=== PATIENT | female | born 1970 | race African-American/Black ===

== ENCOUNTER 2016-10-28 04:26 | Emergency (ER) | payer OTHER ==
[~2016-10-28] VITALS: Ht 162.6 cm; Wt 89.0 kg
[~2016-10-28 04:26] MED LIST: CYAN1000P IM; DULO60 PO; ELUX1TAB PO; EMPA1TAB3; ERGO50000 PO; GABA800T PO; HYDR-3129 PO; LANTUS2P SC; LISI-363 PO; METH750T2 PO; METO10TA PO; NOVOLOGP2 SQ; PROM25SU8 PO; PROT40TA PO; TIZA4 PO; TRAZ100 PO
[2016-10-28 04:29] VITALS: BP 136/73; PULSE 97; RESP 14; TEMP 98.9; O2SAT 98
--- NOTE | 2016-10-28 04:51 | PD ---
HPI Chief Complaint: General Weakness Time Seen by Provider: 04:38 Travel History International Travel<30 days: No Contact w/Intl Traveler<30days: No Traveled to known affect area: No History of Present Illness HPI 46 year-old woman presents to the emergency department complaining of syncopal episode. She woke up around 1 AM. She wasn't really sleep yet. She went to go turn her air conditioner off. States she felt it coming on and fell also weak all over. She then passed out. She's passed out a couple times in the past. States she may have hit her head on the wall on the way down. Afterwards she had severe right knee pain and weakness rate probably down to her feet, as well as left knee pain. She otherwise had been feeling generally well and healthy. No chest pain or trouble breathing. No other complaints. History Past Medical History Narrative Medical CAD hypertension dyslipidemia gastroparesis peripheral neuropathy CVA fibromyalgia sleep apnea Gastric bypass LMP: TUBAL : 2 Para: 2 Dilation and Curettage (D&C): Yes Social History Alcohol Use: No Tobacco Use: No Allergies-Medications (Allergen,Severity, Reaction): Coded Allergies: Darvocet-N 100 (Verified Adverse Reaction, Severe, Tachycardia, 10/28/16) Ciprofloxacin (Verified Adverse Reaction, Intermediate, 10/28/16) Reported Meds & Prescriptions Reported Meds & Active Scripts Active Reported Trazodone (Trazodone HCl) 100 Mg Tab 100 Mg PO HS Tizanidine (Tizanidine HCl) 4 Mg Cap 4 Mg PO Q8HRS Protonix (Pantoprazole Sodium) 40 Mg Tab 40 Mg PO DAILY Reglan (Metoclopramide HCl) 10 Mg Tab 10 Mg PO Q6 HR Lisinopril 20 Mg Tab 20 Mg PO DAILY Lantus Inj (Insulin Glargine) 1,000 Unit/10 Ml Vial 25 Units SQ HS Hydrocodone-Acetaminophen 10-325 mg Tab 1 Tab PO Q6H PRN Gabapentin 800 Mg Tab 800 Mg PO TID Vitamin D (Ergocalciferol) 50,000 Unit Cap 50,000 Units PO WEEKLY takes 2 tabs per week Jardiance (Empagliflozin) 25 Mg Tab 25 Mg PO DAILY Viberzi (Eluxadoline) 75 Mg Tab 75 Mg PO DAILY Duloxetine DR (Duloxetine HCl) 60 Mg Capdr 60 Mg PO DAILY Review of Systems Except as stated in HPI: all other systems reviewed are Neg Physical Exam Narrative GENERAL: 46 year-old woman, no acute distress. SKIN: Focused skin assessment warm/dry. HEAD: Atraumatic. Normocephalic. EYES: Pupils equal and round. No scleral icterus. No injection or drainage. ENT: No nasal bleeding or discharge. Mucous membranes pink and moist. NECK: Trachea midline. No JVD. CARDIOVASCULAR: Regular rate and rhythm. No murmur appreciated. RESPIRATORY: No accessory muscle use. Clear to auscultation. Breath sounds equal bilaterally. GASTROINTESTINAL: Abdomen soft, non-tender, nondistended. Hepatic and splenic margins not palpable. MUSCULOSKELETAL: No obvious deformities. Right knee is a trace effusion with a little warm. She refuses to range it much at all. There is no significant ecchymosis or swelling. She has very diffuse tenderness of the knee and lower leg on the right. On the left she will range the knee some. She'll complaints of tenderness throughout the lower leg. NEUROLOGICAL: Awake and alert. No obvious cranial nerve deficits. Motor grossly within normal limits. Normal speech. PSYCHIATRIC: Appropriate mood and affect; insight and judgment normal. Data Data Last Documented VS Vital Signs Date Time Temp Pulse Resp B/P Pulse Ox O2 Delivery O2 Flow Rate FiO2 10/28/16 04:43 99 Room Air 10/28/16 04:29 98.9 97 14 136/73 Orders Complete Blood Count With Diff (10/28/16 04:45) Comprehensive Metabolic Panel (10/28/16 04:45) Beta Hcg (Quant/Titer) (10/28/16 04:45) Electrocardiogram (10/28/16 ) Iv Access Insert/Monitor (10/28/16 04:45) Knee, Complete (4vws) (10/28/16 ) Tibia/Fibula (Ap/Lat) (10/28/16 ) Knee, Complete (4vws) (10/28/16 ) Tibia/Fibula (Ap/Lat) (10/28/16 ) Labs Laboratory Tests Test 10/28/16 04:40 White Blood Count 7.5 TH/MM3 Red Blood Count 4.64 MIL/MM3 Hemoglobin 13.2 GM/DL Hematocrit 40.4 % Mean Corpuscular Volume 86.9 FL Mean Corpuscular Hemoglobin 28.5 PG Mean Corpuscular Hemoglobin 32.8 % Concent Red Cell Distribution Width 14.1 % Platelet Count 172 TH/MM3 Mean Platelet Volume 9.7 FL Neutrophils (%) (Auto) 69.3 % Lymphocytes (%) (Auto) 22.4 % Monocytes (%) (Auto) 5.9 % Eosinophils (%) (Auto) 2.0 % Basophils (%) (Auto) 0.4 % Neutrophils # (Auto) 5.2 TH/MM3 Lymphocytes # (Auto) 1.7 TH/MM3 Monocytes # (Auto) 0.4 TH/MM3 Eosinophils # (Auto) 0.1 TH/MM3 Basophils # (Auto) 0.0 TH/MM3 CBC Comment DIFF FINAL Differential Comment Sodium Level 137 MEQ/L Potassium Level 4.2 MEQ/L Chloride Level 104 MEQ/L Carbon Dioxide Level 25.2 MEQ/L Anion Gap 8 MEQ/L Blood Urea Nitrogen 13 MG/DL Creatinine 0.80 MG/DL Estimat Glomerular Filtration 94 ML/MIN Rate Random Glucose 143 MG/DL Calcium Level 8.7 MG/DL Total Bilirubin 0.3 MG/DL Aspartate Amino Transf 43 U/L (AST/SGOT) Alanine Aminotransferase 54 U/L (ALT/SGPT) Alkaline Phosphatase 105 U/L Total Protein 7.9 GM/DL Albumin 3.6 GM/DL Human Chorionic Gonadotropin, LESS THAN 1 Quant MIU/ML [facility] Medical Decision Making Medical Screen Exam Complete: Yes Emergency Medical Condition: Yes Interpretation(s) My review of EKG: Sinus rhythm at a rate of 92, normal axis, normal intervals, no definite evidence of acute ischemia. Small voltage. Compared to previous EKG from February 21, 2016, anterior precordial Q waves are new, no other definite change. LABS: CBC is unremarkable. CMP is unremarkable, mildly elevated AST and ALT HCG is negative Right knee x-ray: Small joint effusion. Left knee x-ray: Negative Bilateral tib-fib x-rays: Negative Differential Diagnosis Vasovagal syncope, adverse effect of medications, arrhythmia, PE, knee injury, head injury, other Narrative Course Medical decision making INITIAL : 46 year-old woman presents to the emergency department after syncopal episode. History of several syncopal episodes in the past. No clear precipitant. No other red flag symptoms. We'll check labs, EKG, and x-rays of her knee and lower legs. Diagnosis Primary Impression: Syncope and collapse Additional Impression: Knee pain, acute Additional Instructions: Drink plenty of fluids to stay well-hydrated You can weight-bear on your her right knee as tolerated. Follow-up with your primary doctor in 7 days for repeat evaluation. Disposition: 01 DISCHARGE HOME Condition: Stable Armand Braga MD Oct 28, 2016 04:50
[2016-10-28] MEDS ORDERED: LISI-515 PO (04:59)
[2016-10-28] MEDS ORDERED: NOVOLOGP2 SQ (04:59)
[2016-10-28] MEDS ORDERED: TIZA4CAP3 PO (04:59)
[2016-10-28] MEDS ORDERED: REGL10TA5 PO (04:59)
[2016-10-28] MEDS ORDERED: DULO1CAP3 PO (04:59)
[2016-10-28] MEDS ORDERED: EMPA1TAB3 PO (04:59)
[2016-10-28] MEDS ORDERED: ERGO1CAP10 PO (04:59)
[2016-10-28] MEDS ORDERED: ELUX1TAB PO (04:59)
[2016-10-28] MEDS ORDERED: TRAZ100T4 PO (04:59)
[2016-10-28] MEDS ORDERED: LANTUS2P SQ (04:59)
[2016-10-28] MEDS ORDERED: HYDR-3583 PO (04:59)
[2016-10-28] MEDS ORDERED: GABA800T PO (04:59)
[2016-10-28] MEDS ORDERED: PROT40TA PO (04:59)
[2016-10-28 05:09] LABS: AUTOMATED NEUTROPHIL # 5.2 TH/MM3 (1.8-7.7); BASOPHIL % 0.4 % (0.0-2.0); EOSINOPHIL # 0.1 TH/MM3 (0-0.4); HEMATOCRIT 40.4 % (35.0-46.0); HEMO FLAGS DIFF FINAL; LYMPH % 22.4 % (9.0-44.0); LYMPHOCYTE # 1.7 TH/MM3 (1.0-4.8); MEAN CELL VOLUME 86.9 FL (80.0-100.0); MEAN CORPUSCULAR HEMOGLOBIN 28.5 PG (27.0-34.0); MEAN CORPUSCULAR HGB CONC 32.8 % (32.0-36.0); MONO % 5.9 % (0.0-8.0); NEUT % 69.3 % (16.0-70.0); PLATELET COUNT 172 TH/MM3 (150-450); RED BLOOD COUNT 4.64 MIL/MM3 (4.00-5.30); RED CELL DISTRIBUTION WIDTH 14.1 % (11.6-17.2); WHITE BLOOD COUNT 7.5 TH/MM3 (4.0-11.0)
[2016-10-28 05:35] LABS: ANION GAP 8 MEQ/L (5-15); AST (GOT) 43 U/L (15-37); BICARBONATE 25.2 MEQ/L (21.0-32.0); BLOOD UREA NITROGEN 13 MG/DL (7-18); CHLORIDE 104 MEQ/L (98-107); GLOMERULAR FILTRATION RATE 94 ML/MIN (>89); POTASSIUM 4.2 MEQ/L (3.5-5.1); SODIUM (NA) 137 MEQ/L (136-145)
[2016-10-28 05:40] LABS: ALKALINE PHOSPHATASE 105 U/L (45-117); ALT (GPT) 54 U/L (10-53); BETA HCG QUANT LESS THAN 1 MIU/ML (0-5); TOTAL BILIRUBIN ADULT 0.3 MG/DL (0.2-1.0)
--- NOTE | 2016-10-28 06:27 | RADRPT ---
EXAM DATE/TIME: 10/28/2016 05:39 [facility] COMPARISON: No previous studies available for comparison. INDICATIONS : Trauma, fall. MEDICAL HISTORY : None. SURGICAL HISTORY : None. ENCOUNTER: Initial ACUITY: 1 day PAIN SCORE: 4/10 LOCATION: Right knee. FINDINGS: No definite fractures, or dislocations are identified. No definite lytic or sclerotic lesion is seen . The joint spaces are well maintained. Small joint effusion is seen. CONCLUSION: Small joint effusion. Erica Hdz MD on October 28, 2016 at 6:25 Board Certified Radiologist. This report was verified electronically.
--- NOTE | 2016-10-28 06:28 | RADRPT ---
EXAM DATE/TIME: 10/28/2016 05:41 [facility] COMPARISON: No previous studies available for comparison. INDICATIONS : Trauma, fall. MEDICAL HISTORY : None. SURGICAL HISTORY : None. ENCOUNTER: Initial ACUITY: 1 day PAIN SCORE: 6/10 LOCATION: Right lower leg. FINDINGS: No definite fractures, or dislocations are identified. No definite lytic or sclerotic lesion is seen . Small joint effusion is seen. CONCLUSION: No definite fracture is seen for techniqueObi FabyObi Hdz MD on October 28, 2016 at 6:26 Board Certified Radiologist. This report was verified electronically.
--- NOTE | 2016-10-28 06:36 | RADRPT ---
EXAM DATE/TIME: 10/28/2016 05:29 [facility] COMPARISON: No previous studies available for comparison. INDICATIONS : Trauma, fall. MEDICAL HISTORY : None. SURGICAL HISTORY : None. ENCOUNTER: Initial ACUITY: 1 day PAIN SCORE: 3/10 LOCATION: Left knee. FINDINGS: No definite fractures, or dislocations are identified. No definite lytic or sclerotic lesion is seen . The joint spaces are well maintained. CONCLUSION: Unremarkable study. Erica Hdz MD on October 28, 2016 at 6:34 Board Certified Radiologist. This report was verified electronically.
--- NOTE | 2016-10-28 06:38 | RADRPT ---
EXAM DATE/TIME: 10/28/2016 05:32 [facility] COMPARISON: No previous studies available for comparison. INDICATIONS : Trauma, fall. MEDICAL HISTORY : None. SURGICAL HISTORY : None. ENCOUNTER: Initial ACUITY: 1 day PAIN SCORE: 4/10 LOCATION: Left lower leg. FINDINGS: No definite fractures, or dislocations are identified. No definite lytic or sclerotic lesion is seen . The joint spaces are well maintained. CONCLUSION: Unremarkable study. Erica Hdz MD on October 28, 2016 at 6:36 Board Certified Radiologist. This report was verified electronically.
[2016-10-28 07:34] VITALS: BP 120/78; TEMP 97.8
--- NOTE | 2016-10-28 13:49 | EKG ---
Date Performed: 10/28/2016 Time Performed: 05:04:21 PTAGE: 46 years EKG: Sinus rhythm LOW QRS VOLTAGE IN PRECORDIAL LEADS POSSIBLE ANTERIOR MYOCARDIAL INFARCTION BORDERLINE ECG Compared to prior tracing no significant change PREVIOUS TRACING : 02/21/2016 03.21 DOCTOR: Eduardo Russell Interpretating Date/Time 10/28/2016 13:42:39
== END 2016-10-28 07:34 | disposition home or self-care (01) ==
LOC: NEPC 04:26
DX: R55 Syncope and collapse (principal); R94.31 Abnormal electrocardiogram [ECG] [EKG]
CPT/HCPCS: 73564; 73590; 80053; 84702; 85025; 93005

== ENCOUNTER 2017-03-02 20:10 | Emergency (ER) | payer OTHER, MEDICAID ==
[~2017-03-02 20:10] MED LIST changes: -CYAN1000P IM; +DULO1CAP3 PO; -DULO60 PO; -EMPA1TAB3; +EMPA1TAB3 PO; +ERGO1CAP10 PO; -ERGO50000 PO; -HYDR-3129 PO; +HYDR-3583 PO; -LANTUS2P SC; +LANTUS2P SQ; -LISI-363 PO; +LISI-515 PO; -METH750T2 PO; -METO10TA PO; -PROM25SU8 PO; +REGL10TA5 PO; -TIZA4 PO; +TIZA4CAP3 PO; -TRAZ100 PO; +TRAZ100T4 PO
[2017-03-02 20:12] VITALS: BP 147/89; PULSE 113; RESP 16; TEMP 98.7; O2SAT 97
[2017-03-02] MEDS ORDERED: TRAZ100T6 PO (20:56)
[2017-03-02] MEDS ORDERED: ESTR.625 PO (20:56)
[2017-03-02] MEDS ORDERED: VITA200013 (20:56)
[2017-03-02] MEDS ORDERED: DICY10 PO (20:56)
[2017-03-02] MEDS ORDERED: GABA800T PO (20:56)
[2017-03-02] MEDS ORDERED: ONDANSETRON HCL 4 MG/2 ML VIAL IVP ONE (21:00)
[2017-03-02] MEDS ORDERED: SODIUM CHLOR 0.9% 1000 ML INJ 1,000 ML IV SCH (21:00)
[2017-03-02] MEDS ORDERED: MORPHINE SULFATE 4 MG/ML INJ IV PUSH ONE (21:00)
--- NOTE | 2017-03-02 21:02 | PD ---
HPI Chief Complaint: Respiratory Symptoms Time Seen by Provider: 20:55 Travel History International Travel<30 days: No Contact w/Intl Traveler<30days: No Traveled to known affect area: No History of Present Illness HPI 46- year old female presents to the ED with upper back pain for the past 3-4 days, worsened this morning. She reports that the pain is constant and sharp, and radiates to her lower abdomen and is causing some chest tightness. She states her pain is a 10/10 and has tried taking Lortab about 4 hours ago, but had no relief. She reports nausea, but denies any vomiting, or diarrhea. The patient reports that she does feel a little distended with her last bowel movement being this morning. She reports she has only had one bowel movement today, but on a normal basis has multiple per day. Prior abdominal surgeries include: gastric bypass, hernia repair, bowel blockage repair, cholecystectomy, and two C-sections. She reports her medical conditions include: CAD, DM, and a Stroke about 20 years ago. PFSH Past Medical History Arthritis: Yes Asthma: No Autoimmune Disease: Yes Blood Disorders: No Anxiety: Yes Depression: Yes Heart Rhythm Problems: Yes (HAS HEART RHYTHM PROBLEMS WHEN TAKING DARVOCET) Cancer: No Cardiovascular Problems: Yes High Cholesterol: Yes Chemotherapy: No Chest Pain: Yes (FOR 1 DAY) Congestive Heart Failure: No COPD: No Cerebrovascular Accident: Yes Coronary Artery Disease: Yes Diabetes: Yes Patient Takes Glucophage: No Diminished Hearing: No Endocrine: Yes Fibromyalgia: Yes Gastrointestinal Disorders: Yes GERD: Yes Glaucoma: No Genitourinary: No Headaches: Yes Hepatitis: No Hiatal Hernia: No Hypertension: Yes 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) Kidney Stones: No Medical other: Yes (GERD, NEUROPATHY IN FEET AND HANDS, SUB ARACHNOID HEMORRHAGE) Musculoskeletal: Yes (BACK NECK PAIN) Neurologic: Yes Psychiatric: Yes Reproductive: No Respiratory: Yes (HX SLEEP APNEA (RESOLVED WITH WT LOSS)) Immunizations Current: Yes Migraines: Yes Myocardial Infarction: No Radiation Therapy: No Renal Failure: No Seizures: No Sickle Cell Disease: No Sleep Apnea: No Thyroid Disease: No Ulcer: No Tetanus Vaccination: > 5 Years Influenza Vaccination: No ?: Not : 2 Para: 2 Miscarriage: 0 : 0 Ovarian Cysts: Yes Dilation and Curettage (D&C): Yes Tubal Ligation: Yes Past Surgical History Abdominal Surgery: Yes (gastric bypass, hernia repair) AICD: No Cardiac Surgery: No Section: Yes (x 2) Cholecystectomy: Yes Ear Surgery: No Endocrine Surgery: No Eye Surgery: No Genitourinary Surgery: No Gynecologic Surgery: Yes (c sec x 2) Hysterectomy: Yes Joint Replacement: No Neurologic Surgery: No Oral Surgery: Yes (WISDOM TEETH REMOVED) Pacemaker: No Thoracic Surgery: No Other Surgery: Yes (BILAT CARPEL TUNNEL) Social History Alcohol Use: No Tobacco Use: No Substance Use: No Allergies-Medications (Allergen,Severity, Reaction): Coded Allergies: Darvocet-N 100 (Verified Adverse Reaction, Severe, Tachycardia, 03/02/17) Ciprofloxacin (Verified Adverse Reaction, Intermediate, 03/02/17) Reported Meds & Prescriptions Reported Meds & Active Scripts Active Reported Bentyl (Dicyclomine HCl) 10 Mg Cap 10 Mg PO TID Premarin (Estrogens Conjugated) 0.625 Mg Tab 0.625 Mg PO DAILY Trazodone (Trazodone HCl) 100 Mg Tablet 100 Mg PO HS Gabapentin 800 Mg Tab 800 Mg PO BID Vitamin D (Cholecalciferol) 2,000 Unit Cap Tizanidine (Tizanidine HCl) 4 Mg Cap 4 Mg PO Q8HRS Protonix (Pantoprazole Sodium) 40 Mg Tab 40 Mg PO DAILY Lisinopril 20 Mg Tab 20 Mg PO DAILY Lantus Inj (Insulin Glargine) 1,000 Unit/10 Ml Vial 25 Units SQ HS Novolog Inj (Insulin Aspart) 1,000 Unit/10 Ml Vial 10 Units SQ TID Hydrocodone-Acetaminophen 10-325 mg Tab 1 Tab PO Q6H PRN Jardiance (Empagliflozin) 25 Mg Tab 25 Mg PO DAILY Duloxetine DR (Duloxetine HCl) 60 Mg Capdr 60 Mg PO DAILY Review of Systems General / Constitutional: No: Fever, Chills, Weight Gain, Weight Loss, Other Eyes: No: Diploplia, Blurred Vision, Photophobia, Drainage, Redness, Foreign Body Sensation, Pain, Tearing, Blind Spots, Visual changes, Blindness, Other HENT: No: Headaches, Vertigo, Lightheadedness, Sore Throat, Rhinitis, Rhinorrhea, Congestion, Nosebleed, Neck Stiffness, Neck Pain, Masses, Gingival Bleeding, Dental Difficulties, Ear Discharge, Earache, Other Cardiovascular: Positive: Chest Pain or Discomfort, No: Palpitations, Irregular Rhythm, Tachycardia, Diaphoresis, Syncope, Dyspnea on exertion, Varicosities, Edema, Cyanosis, Varicosities, Phlebitis, Claudication, Other Respiratory: No: Cough, Shortness of Breath, Wheezing, Sneezing, Orthopnea, Hemoptysis, Stridor, Night Sweats, Pleuritic Pain, Other Gastrointestinal: Positive: Nausea, Abdominal Pain, Changes in Bowel Habits, No: Vomiting, Diarrhea, Hematemesis, Hematochezia, Constipation, Indigestion, Dysphagia, Loss of Appetite, Other Genitourinary: No: Urgency, Frequency, Dysuria, Nocturia, Hematuria, Decreased Urinary Output, Oliguria, Hesitancy, Dribbling, Incontinence, Pelvic Pain, Flank Pain, Dyspareunia, Discharge, Dysmenorrhea, Menorrhagia, Metorrhagia, Vaginal Bleeding, Other Musculoskeletal: Positive: Myalgias (Upper back pain), No: Arthralgias, Limited ROM, Weakness, Cramping, Edema, Pain, Atrophy, Other Skin: No Rash, No Itching, No Dryness, No Lumps, No Hives, No Change in Pigmentation, No Change in nails, No Alopecia, No Lesions, No Breast Lumps, No Breast Tenderness, No Breast Swelling, No Other Neurologic: No: Weakness, Dizziness, Syncope, Focal Abnormalities, Coordination Problem, Tremor, Ataxia, Headache, Change in Mentation, Slurred Speech, Paresthesia, Incontinence, Seizures, Sensory Disturbance, Other Psychiatric: No: Anxiety, Depression, Suicidal Ideations, Disorder of Thought, Mood Disorder, Substance Abuse, Homicidal Ideation, Other Endocrine: No: Heat Intolerance, Cold Intolerance, Polyuria, Polydipsia, Other Hematologic/Lymphatic: No: Easy Bruising, Lymph Node Enlargement, Other Physical Exam Narrative GENERAL: SKIN: Warm and dry. HEAD: Atraumatic. Normocephalic. EYES: Pupils equal and round. No scleral icterus. No injection or drainage. ENT: No nasal bleeding or discharge. Mucous membranes pink and moist. NECK: Trachea midline. No JVD. CARDIOVASCULAR: Regular rate and rhythm. RESPIRATORY: No accessory muscle use. Clear to auscultation. Breath sounds equal bilaterally. GASTROINTESTINAL: Mildly distended, tender to palpation in LLQ and RLQ. Hepatic and splenic margins not palpable. MUSCULOSKELETAL: CVA tenderness bilaterally, worse on the left. Extremities without clubbing, cyanosis, or edema. No obvious deformities. NEUROLOGICAL: Awake and alert. No obvious cranial nerve deficits. Motor grossly within normal limits. Five out of 5 muscle strength in the arms and legs. Normal speech. PSYCHIATRIC: Appropriate mood and affect; insight and judgment normal. Data Data Last Documented VS Vital Signs Date Time Temp Pulse Resp B/P Pulse Ox O2 Delivery O2 Flow Rate FiO2 03/02/17 20:12 98.7 113 16 147/89 97 Room Air Orders Complete Blood Count With Diff (03/02/17 21:00) Comprehensive Metabolic Panel (03/02/17 21:00) Lipase (03/02/17 21:00) Lactic Acid (03/02/17 21:00) Prothrombin Time / Inr (Pt) (03/02/17 21:00) Act Partial Throm Time (Ptt) (03/02/17 21:00) Urinalysis - C+S If Indicated (03/02/17 21:00) Ct Abd/Pel W Iv Contrast(Rout) (03/02/17 21:00) Iv Access Insert/Monitor (03/02/17 21:00) Morphine Inj (Morphine Inj) (03/02/17 21:00) Ondansetron Inj (Zofran Inj) (03/02/17 21:00) Sodium Chlor 0.9% 1000 Ml Inj (Ns 1000 M (03/02/17 21:00) Ed Urine Pregnancytest Poc (03/02/17 21:00) Iohexol 350 Inj (Omnipaque 350 Inj) (03/02/17 22:42) Labs Laboratory Tests Test 03/02/17 03/02/17 03/02/17 21:25 21:40 22:00 White Blood Count 6.8 TH/MM3 Red Blood Count 4.66 MIL/MM3 Hemoglobin 12.2 GM/DL Hematocrit 38.4 % Mean Corpuscular Volume 82.5 FL Mean Corpuscular Hemoglobin 26.1 PG Mean Corpuscular Hemoglobin 31.7 % Concent Red Cell Distribution Width 16.9 % Platelet Count 189 TH/MM3 Mean Platelet Volume 9.0 FL Neutrophils (%) (Auto) 63.2 % Lymphocytes (%) (Auto) 29.4 % Monocytes (%) (Auto) 6.5 % Eosinophils (%) (Auto) 0.6 % Basophils (%) (Auto) 0.3 % Neutrophils # (Auto) 4.3 TH/MM3 Lymphocytes # (Auto) 2.0 TH/MM3 Monocytes # (Auto) 0.4 TH/MM3 Eosinophils # (Auto) 0.0 TH/MM3 Basophils # (Auto) 0.0 TH/MM3 CBC Comment DIFF FINAL Differential Comment Prothrombin Time 9.8 SEC Prothromb Time International 0.9 RATIO Ratio Activated Partial 23.1 SEC Thromboplast Time Sodium Level 137 MEQ/L Potassium Level 4.1 MEQ/L Chloride Level 104 MEQ/L Carbon Dioxide Level 25.9 MEQ/L Anion Gap 7 MEQ/L Blood Urea Nitrogen 11 MG/DL Creatinine 0.65 MG/DL Estimat Glomerular Filtration 120 ML/MIN Rate Random Glucose 85 MG/DL Calcium Level 8.9 MG/DL Total Bilirubin 0.2 MG/DL Aspartate Amino Transf 26 U/L (AST/SGOT) Alanine Aminotransferase 30 U/L (ALT/SGPT) Alkaline Phosphatase 98 U/L Total Protein 8.2 GM/DL Albumin 3.5 GM/DL Lipase 321 U/L Lactic Acid Level 1.1 mmol/L Urine Color LIGHT-YELLOW Urine Turbidity CLEAR Urine pH 5.0 Urine Specific [place] 1.022 Urine Protein NEG mg/dL Urine Glucose (UA) 1000 mg/dL Urine Ketones NEG mg/dL Urine Occult Blood NEG Urine Nitrite NEG Urine Bilirubin NEG Urine Urobilinogen LESS THAN 2.0 MG/DL Urine Leukocyte Esterase NEG Urine RBC LESS THAN 1 /hpf Urine WBC 1 /hpf Urine Mucus FEW /lpf Microscopic Urinalysis Comment CULT NOT INDICATED MDM Medical Decision Making Medical Screen Exam Complete: Yes Emergency Medical Condition: Yes Medical Record Reviewed: Yes Differential Diagnosis Pancreatitis Pyelonephritis UTI Nephrolithiasis Obstruction Narrative Course 46-year-old female that presents to the ED for evaluation of abdominal pain and back pain. Patient was properly examined and was found to have signs and symptoms concerning for possible bowel obstruction. Most of the pain appears to be abdominal in nature. She does have significant history of gastric issues. At this time labs and imaging were ordered. Patient will be signed out to my attending pending labs and imaging and disposition. Levon English Mar 02, 2017 21:02
[2017-03-02 21:51] LABS: AUTOMATED NEUTROPHIL # 4.3 TH/MM3 (1.8-7.7); BASOPHIL % 0.3 % (0.0-2.0); EOSINOPHIL % 0.6 % (0.0-4.0); HEMATOCRIT 38.4 % (35.0-46.0); HEMO FLAGS DIFF FINAL; LYMPH % 29.4 % (9.0-44.0); MEAN CELL VOLUME 82.5 FL (80.0-100.0); MEAN CORPUSCULAR HEMOGLOBIN 26.1 PG (27.0-34.0); MEAN CORPUSCULAR HGB CONC 31.7 % (32.0-36.0); MONO % 6.5 % (0.0-8.0); NEUT % 63.2 % (16.0-70.0); PLATELET COUNT 189 TH/MM3 (150-450); RED BLOOD COUNT 4.66 MIL/MM3 (4.00-5.30); RED CELL DISTRIBUTION WIDTH 16.9 % (11.6-17.2); WHITE BLOOD COUNT 6.8 TH/MM3 (4.0-11.0)
[2017-03-02 22:03] LABS: ANION GAP 7 MEQ/L (5-15); AST (GOT) 26 U/L (15-37); BICARBONATE 25.9 MEQ/L (21.0-32.0); BLOOD UREA NITROGEN 11 MG/DL (7-18); CHLORIDE 104 MEQ/L (98-107); GLOMERULAR FILTRATION RATE 120 ML/MIN (>89); POTASSIUM 4.1 MEQ/L (3.5-5.1); SODIUM (NA) 137 MEQ/L (136-145)
[2017-03-02 22:05] LABS: ALT (GPT) 30 U/L (10-53)
[2017-03-02 22:07] LABS: ALKALINE PHOSPHATASE 98 U/L (45-117); TOTAL BILIRUBIN ADULT 0.2 MG/DL (0.2-1.0)
[2017-03-02 22:20] LABS: BLOOD, URINE NEG (NEG); COMMENT (UR) CULT NOT INDICATED; CULTURE IF INDICATED CULT NOT INDICATED; GLUCOSE,URINE 1000 mg/dL (NEG); KETONE, URINE NEG (NEG); MUCUS URINE FEW /lpf (OCC); NITRITE,URINE NEG (NEG); URINE COLOR LIGHT-YELLOW (YELLW/STRAW)
[2017-03-02 22:33] LABS: INTERNATIONAL NORMALIZED RATIO 0.9 RATIO; PROTHROMBIN TIME - PATIENT 9.8 SEC (9.8-11.6)
[2017-03-02 22:37] LABS: APTT (PATIENT) 23.1 SEC (24.3-30.1)
[2017-03-02] MEDS ORDERED: IOHEXOL 350 MG/ML 10 ML VIAL (for RAD DIAG) IV ONE (22:42)
--- NOTE | 2017-03-02 23:24 | RADRPT ---
EXAM DATE/TIME: 03/02/2017 22:28 [facility] COMPARISON: No previous studies available for comparison. INDICATIONS : Back pain and abdominal bloating. IV CONTRAST: 100 cc Omnipaque 350 (iohexol) IV ORAL CONTRAST: No oral contrast ingested. RADIATION DOSE: 12.15 CTDIvol (mGy) MEDICAL HISTORY : Diabetes mellitus type 2. Gastroesophageal reflux disease. Hypertension. SURGICAL HISTORY : Gastric bypass. Cholecystectomy.Hysterectomy.Tubal ligation. ENCOUNTER: Initial ACUITY: 1 day PAIN SCALE: 5/10 LOCATION: abdomen TECHNIQUE: Volumetric scanning of the abdomen and pelvis was performed. Using automated exposure control and ad justment of the mA and/or kV according to patient size, radiation dose was kept as low as reasonably achievable to obtain optimal diagnostic quality images. DICOM format image data is available electro nically for review and comparison. FINDINGS: LOWER LUNGS: There is patchy, mainly peripheral infiltrate in the visualized lung bases, right more so than left. LIVER: Homogeneous density without lesion. There is no dilation of the biliary tree. Previous cholecystecto my. SPLEEN: Normal size without lesion. PANCREAS: Within normal limits. KIDNEYS: Normal in size and shape. There is no mass, stone or hydronephrosis. ADRENAL GLANDS: Within normal limits. VASCULAR: There is no aortic aneurysm. BOWEL/MESENTERY: Small bowel loops are upper limits of normal caliber. There is fluid filled ileum. I don't see any ab rupt caliber changes. Adjacent to some of the fluid filled loops of small bowel is a suspected 6.2 cm left adnexal cyst. There is no free fluid. Patient has had previous gastric bypass. ABDOMINAL WALL: Within normal limits. RETROPERITONEUM: There is no lymphadenopathy. BLADDER: No wall thickening or mass. INGUINAL: There is no lymphadenopathy or hernia. MUSCULOSKELETAL: No acute bony abnormality demonstrated. CONCLUSION: 1. Fluid-filled loops of small bowel suggesting low-grade enteritis. Pattern is nonobstructive. There is no free fluid. 2. Suspected 6.2 cm left ovarian cyst. Followup transvaginal pelvic ultrasound recommended in 03-04 we eks to confirm resolution. Again, no free fluid. 3. Atypical appearing nonspecific pneumonia of both lung bases. Zach Sam MD on March 02, 2017 at 23:19 Board Certified Radiologist. This report was verified electronically.
[2017-03-02 23:27] VITALS: BP 128/64; PULSE 95; RESP 18; O2SAT 97
[2017-03-03] MEDS ORDERED: CIPR-9 PO (00:06)
[2017-03-03] MEDS ORDERED: HYDR-3533 PO (00:07)
[2017-03-03] MEDS ORDERED: METR-1 PO (00:07)
--- NOTE | 2017-03-03 00:07 | PD ---
Physical Exam Narrative I, Dr. Rodriguez, have reviewed the advance practice practitioner's documentation and am in agreement, met with the patient face to face, made the diagnosis, and the medical decision making was done by me. *My assessment and Findings: Patient is a 46-year-old female comes in complaining of back pain wrapping around to her abdomen. She says she's had nausea, but no vomiting. She says she's also been constipated. Exam shows some tenderness across the middle of the abdomen. No rebound or guarding. Data Data Last Documented VS Vital Signs Date Time Temp Pulse Resp B/P Pulse Ox O2 Delivery O2 Flow Rate FiO2 03/02/17 23:27 95 18 128/64 97 Room Air 03/02/17 20:12 98.7 Orders Complete Blood Count With Diff (03/02/17 21:00) Comprehensive Metabolic Panel (03/02/17 21:00) Lipase (03/02/17 21:00) Lactic Acid (03/02/17 21:00) Prothrombin Time / Inr (Pt) (03/02/17 21:00) Act Partial Throm Time (Ptt) (03/02/17 21:00) Urinalysis - C+S If Indicated (03/02/17 21:00) Ct Abd/Pel W Iv Contrast(Rout) (03/02/17 21:00) Iv Access Insert/Monitor (03/02/17 21:00) Morphine Inj (Morphine Inj) (03/02/17 21:00) Ondansetron Inj (Zofran Inj) (03/02/17 21:00) Sodium Chlor 0.9% 1000 Ml Inj (Ns 1000 M (03/02/17 21:00) Ed Urine Pregnancytest Poc (03/02/17 21:00) Iohexol 350 Inj (Omnipaque 350 Inj) (03/02/17 22:42) Labs Laboratory Tests Test 03/02/17 03/02/17 03/02/17 21:25 21:40 22:00 White Blood Count 6.8 TH/MM3 Red Blood Count 4.66 MIL/MM3 Hemoglobin 12.2 GM/DL Hematocrit 38.4 % Mean Corpuscular Volume 82.5 FL Mean Corpuscular Hemoglobin 26.1 PG Mean Corpuscular Hemoglobin 31.7 % Concent Red Cell Distribution Width 16.9 % Platelet Count 189 TH/MM3 Mean Platelet Volume 9.0 FL Neutrophils (%) (Auto) 63.2 % Lymphocytes (%) (Auto) 29.4 % Monocytes (%) (Auto) 6.5 % Eosinophils (%) (Auto) 0.6 % Basophils (%) (Auto) 0.3 % Neutrophils # (Auto) 4.3 TH/MM3 Lymphocytes # (Auto) 2.0 TH/MM3 Monocytes # (Auto) 0.4 TH/MM3 Eosinophils # (Auto) 0.0 TH/MM3 Basophils # (Auto) 0.0 TH/MM3 CBC Comment DIFF FINAL Differential Comment Prothrombin Time 9.8 SEC Prothromb Time International 0.9 RATIO Ratio Activated Partial 23.1 SEC Thromboplast Time Sodium Level 137 MEQ/L Potassium Level 4.1 MEQ/L Chloride Level 104 MEQ/L Carbon Dioxide Level 25.9 MEQ/L Anion Gap 7 MEQ/L Blood Urea Nitrogen 11 MG/DL Creatinine 0.65 MG/DL Estimat Glomerular Filtration 120 ML/MIN Rate Random Glucose 85 MG/DL Calcium Level 8.9 MG/DL Total Bilirubin 0.2 MG/DL Aspartate Amino Transf 26 U/L (AST/SGOT) Alanine Aminotransferase 30 U/L (ALT/SGPT) Alkaline Phosphatase 98 U/L Total Protein 8.2 GM/DL Albumin 3.5 GM/DL Lipase 321 U/L Lactic Acid Level 1.1 mmol/L Urine Color LIGHT-YELLOW Urine Turbidity CLEAR Urine pH 5.0 Urine Specific [place] 1.022 Urine Protein NEG mg/dL Urine Glucose (UA) 1000 mg/dL Urine Ketones NEG mg/dL Urine Occult Blood NEG Urine Nitrite NEG Urine Bilirubin NEG Urine Urobilinogen LESS THAN 2.0 MG/DL Urine Leukocyte Esterase NEG Urine RBC LESS THAN 1 /hpf Urine WBC 1 /hpf Urine Mucus FEW /lpf Microscopic Urinalysis Comment CULT NOT INDICATED MDM Supervised Visit with FARIDEH: Yes Narrative Course IV established, labs sent. Labs show no acute abnormalities. Patient given fluids, Zofran, pain medicine. CT of the abdomen and pelvis performed shows an ovarian cyst as well as enteritis. Patient informed of the results. She'll be discharged with prescription for Cipro and Flagyl. Discharged with prescription for Lortab as needed for severe pain. She is advised to follow-up with her geriatric assistant regarding the ovarian cyst. Advised to drink plenty of fluids. Advised to avoid alcohol while on the antibiotics. Advised to return to the ED as needed for any worsening symptoms. Last 24 hours Impressions Abdomen/Pelvis CT 03/02/17 2100 Signed Impressions: Service Date/Time: February 22:28 - CONCLUSION: 1. Fluid-filled loops of small bowel suggesting low-grade enteritis. Pattern is nonobstructive. There is no free fluid. 2. Suspected 6.2 cm left ovarian cyst. Followup transvaginal pelvic ultrasound recommended in 8-12 weeks to confirm resolution. Again, no free fluid. 3. Atypical appearing nonspecific pneumonia of both lung bases. Zach Sam MD Diagnosis Primary Impression: Enteritis Additional Impression: Ovarian cyst Qualified Code: N83.202 - Cyst of left ovary Patient Instructions: Enteritis (ED), General Instructions, Ovarian Cyst (ED) Additional Instruction: Take all of your antibiotics. Avoid alcohol taking the antibiotics. Drink any fluids. He had a 6.2 cm cyst on your left ovary. You need to follow-up with your TRACTOR SWEEPER OPERATOR regarding this for an ultrasound to ensure that it resolves. Return to the ED as needed for any worsening symptoms. Scripts Amoxicillin-Clavulanate (Augmentin)875-125 Mg Tab1 Tab PO BID 7 Days Ref 0 Prov:Alisa Rodriguez MD 03/03/17 Hydrocodone-Acetaminophen (Lortab)5-325 Mg Tab1 Tab PO Q6H PRN (PAIN) #10 TAB Ref 0 Prov:Alisa Rodriguez MD 03/03/17 Disposition: 01 DISCHARGE HOME Condition: Stable Alisa Rodriguez MD Mar 03, 2017 00:07 Alisa Rodriguez MD Mar 03, 2017 00:07
[2017-03-03] MEDS ORDERED: AUGM875T3 PO (00:14)
== END 2017-03-03 00:08 | disposition home or self-care (01) ==
LOC: NEPE 20:10
DX: K52.9 Noninfective gastroenteritis and colitis, unspecified (principal); N83.202 Unspecified ovarian cyst, left side; J18.9 Pneumonia, unspecified organism; K59.00 Constipation, unspecified; M54.6 Pain in thoracic spine; E11.9 Type 2 diabetes mellitus without complications; I10 Essential (primary) hypertension; I25.10 Atherosclerotic heart disease of native coronary artery without angina pectoris; K21.9 Gastro-esophageal reflux disease without esophagitis; M79.7 Fibromyalgia; Z79.4 Long term (current) use of insulin
CPT/HCPCS: 74177; 80053; 81001; 83605; 83690; 84703; 85025; 85610; 85730; 96361; 96374; 96375; 99285; J2270; J2405; J7030; Q9967

== ENCOUNTER 2017-03-11 14:49 | Emergency (ER) | payer OTHER, MEDICAID ==
[~2017-03-11] VITALS: Ht 160 cm; Wt 95.0 kg
[~2017-03-11 14:49] MED LIST changes: +AUGM875T3 PO; +DICY10 PO; -ELUX1TAB PO; -ERGO1CAP10 PO; +ESTR.625 PO; +HYDR-3533 PO; -REGL10TA5 PO; -TRAZ100T4 PO; +TRAZ100T6 PO; +VITA200013
[2017-03-11 14:52] VITALS: BP 127/58; PULSE 85; RESP 14; TEMP 98.4; O2SAT 99
--- NOTE | 2017-03-11 14:58 | PD ---
HPI . mid-lower back pain since last visit Chief Complaint: Back/ Neck Pain or Injury Time Seen by Provider: 14:58 Travel History International Travel<30 days: No Contact w/Intl Traveler<30days: No Traveled to known affect area: No History of Present Illness HPI 46-year-old female here with complaints of left-sided back pain mid to lower. Patient says she was seen on Feb. She was dx with enteritis and pneumonia. She was treated with outpatient antibiotics. Apparently her PCP changed her to levaquin. She says she contacted her PCP today because the pain is worse with coughing. She is tearful. She denies any fever, but admits to chills. PFSH Past Medical History Arthritis: Yes Asthma: No Autoimmune Disease: Yes Blood Disorders: No Anxiety: Yes Depression: Yes Heart Rhythm Problems: Yes (HAS HEART RHYTHM PROBLEMS WHEN TAKING DARVOCET) Cancer: No Cardiovascular Problems: Yes High Cholesterol: Yes Chemotherapy: No Chest Pain: Yes (FOR 1 DAY) Congestive Heart Failure: No COPD: No Cerebrovascular Accident: Yes Coronary Artery Disease: Yes Diabetes: Yes Diminished Hearing: No Endocrine: Yes Fibromyalgia: Yes Gastrointestinal Disorders: Yes GERD: Yes Glaucoma: No Genitourinary: No Headaches: Yes Hepatitis: No Hiatal Hernia: No Hypertension: Yes 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) Kidney Stones: No Musculoskeletal: Yes (BACK NECK PAIN) Neurologic: Yes Psychiatric: Yes Reproductive: No Respiratory: Yes (HX SLEEP APNEA (RESOLVED WITH WT LOSS)) Immunizations Current: Yes Migraines: Yes Myocardial Infarction: No Radiation Therapy: No Renal Failure: No Seizures: No Sickle Cell Disease: No Sleep Apnea: No Thyroid Disease: No Ulcer: No : 2 Para: 2 Miscarriage: 0 : 0 Ovarian Cysts: Yes Dilation and Curettage (D&C): Yes Tubal Ligation: Yes Past Surgical History Abdominal Surgery: Yes (gastric bypass, hernia repair) AICD: No Cardiac Surgery: No Section: Yes (x 2) Cholecystectomy: Yes Ear Surgery: No Endocrine Surgery: No Eye Surgery: No Genitourinary Surgery: No Gynecologic Surgery: Yes (c sec x 2) Hysterectomy: Yes Joint Replacement: No Neurologic Surgery: No Oral Surgery: Yes (WISDOM TEETH REMOVED) Pacemaker: No Thoracic Surgery: No Other Surgery: Yes (BILAT CARPEL TUNNEL) Social History Alcohol Use: No Tobacco Use: No Substance Use: No Allergies-Medications (Allergen,Severity, Reaction): Coded Allergies: acetaminophen (Unverified Adverse Reaction, Severe, Tachycardia, 03/07/17) propoxyphene (Unverified Adverse Reaction, Severe, Tachycardia, 03/07/17) ciprofloxacin (Unverified Adverse Reaction, Intermediate, 03/07/17) Reported Meds & Prescriptions Reported Meds & Active Scripts Active Augmentin (Amoxicillin-Clavulanate) 875-125 Mg Tab 1 Tab PO BID 7 Days Lortab (Hydrocodone-Acetaminophen) 5-325 Mg Tab 1 Tab PO Q6H PRN Reported Bentyl (Dicyclomine HCl) 10 Mg Cap 10 Mg PO TID Premarin (Estrogens Conjugated) 0.625 Mg Tab 0.625 Mg PO DAILY Trazodone (Trazodone HCl) 100 Mg Tablet 100 Mg PO HS Gabapentin 800 Mg Tab 800 Mg PO BID Vitamin D (Cholecalciferol) 2,000 Unit Cap Tizanidine (Tizanidine HCl) 4 Mg Cap 4 Mg PO Q8HRS Protonix (Pantoprazole Sodium) 40 Mg Tab 40 Mg PO DAILY Lisinopril 20 Mg Tab 20 Mg PO DAILY Lantus Inj (Insulin Glargine) 1,000 Unit/10 Ml Vial 25 Units SQ HS Novolog Inj (Insulin Aspart) 1,000 Unit/10 Ml Vial 10 Units SQ TID Hydrocodone-Acetaminophen 10-325 mg Tab 1 Tab PO Q6H PRN Jardiance (Empagliflozin) 25 Mg Tab 25 Mg PO DAILY Duloxetine DR (Duloxetine HCl) 60 Mg Capdr 60 Mg PO DAILY Review of Systems General / Constitutional: No: Fever Eyes: No: Visual changes HENT: No: Headaches Cardiovascular: No: Chest Pain or Discomfort Respiratory: Positive: Cough, No: Shortness of Breath Gastrointestinal: No: Abdominal Pain Genitourinary: No: Dysuria Musculoskeletal: Positive: Pain (back pain) Skin: No Rash Neurologic: No: Weakness Psychiatric: No: Depression Endocrine: No: Polydipsia Hematologic/Lymphatic: No: Easy Bruising Physical Exam Narrative GENERAL: AAO x 3, no acute distress, Well-nourished, well-developed patient. SKIN: Warm and dry. No visible rashes or bruising. HEAD: Normocephalic and atraumatic. EYES: No scleral icterus. No injection or drainage. ENT: No nasal drainage noted. Mucous membranes pink. Airway patent. NECK: Supple, trachea midline. No JVD. CARDIOVASCULAR: Regular rate and rhythm without murmurs, gallops, or rubs. RESPIRATORY: Breath sounds equal bilaterally. No accessory muscle use. No rhonchi or rales. GASTROINTESTINAL: Abdomen soft, non-tender, nondistended. EXTREMITIES: No cyanosis or edema. BACK: Nontender without obvious deformity. No CVA tenderness. 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 Data Data Last Documented VS Vital Signs Date Time Temp Pulse Resp B/P Pulse Ox O2 Delivery O2 Flow Rate FiO2 03/11/17 15:00 16 03/11/17 14:52 98.4 85 127/58 99 Orders Chest, Single Ap (03/11/17 ) Complete Blood Count With Diff (03/11/17 15:02) Basic Metabolic Panel (Bmp) (03/11/17 15:02) Urinalysis - C+S If Indicated (03/11/17 15:04) Labs Laboratory Tests Test 03/11/17 03/11/17 15:35 15:45 White Blood Count 6.7 TH/MM3 Red Blood Count 4.52 MIL/MM3 Hemoglobin 11.8 GM/DL Hematocrit 37.0 % Mean Corpuscular Volume 81.9 FL Mean Corpuscular Hemoglobin 26.1 PG Mean Corpuscular Hemoglobin 31.8 % Concent Red Cell Distribution Width 16.2 % Platelet Count 165 TH/MM3 Mean Platelet Volume 9.3 FL Neutrophils (%) (Auto) 61.6 % Lymphocytes (%) (Auto) 30.4 % Monocytes (%) (Auto) 6.8 % Eosinophils (%) (Auto) 0.8 % Basophils (%) (Auto) 0.4 % Neutrophils # (Auto) 4.1 TH/MM3 Lymphocytes # (Auto) 2.0 TH/MM3 Monocytes # (Auto) 0.5 TH/MM3 Eosinophils # (Auto) 0.1 TH/MM3 Basophils # (Auto) 0.0 TH/MM3 CBC Comment DIFF FINAL Differential Comment Sodium Level 138 MEQ/L Potassium Level 4.2 MEQ/L Chloride Level 104 MEQ/L Carbon Dioxide Level 26.5 MEQ/L Anion Gap 8 MEQ/L Blood Urea Nitrogen 10 MG/DL Creatinine 0.53 MG/DL Estimat Glomerular Filtration 152 ML/MIN Rate Random Glucose 64 MG/DL Calcium Level 8.7 MG/DL Urine Color YELLOW Urine Turbidity CLEAR Urine pH 7.0 Urine Specific [place] 1.027 Urine Protein NEG mg/dL Urine Glucose (UA) 1000 mg/dL Urine Ketones NEG mg/dL Urine Occult Blood NEG Urine Nitrite NEG Urine Bilirubin NEG Urine Urobilinogen LESS THAN 2.0 MG/DL Urine Leukocyte Esterase NEG Urine RBC LESS THAN 1 /hpf Urine WBC 1 /hpf Urine Squamous Epithelial <1 /hpf Cells Microscopic Urinalysis Comment CULT NOT INDICATED MDM Medical Decision Making Medical Screen Exam Complete: Yes Emergency Medical Condition: Yes Medical Record Reviewed: Yes Differential Diagnosis pneumonia, UTI, pyelonephritis, enteritis Narrative Course 46-year-old female here with complaints of lower to mid back pain on the left side. She was recently here on March 02, 2017 and diagnosed with enteritis. CT scan was remarkable for atypical appearance of pneumonia on both sides of the lung bases. Patient was treated on outpatient basis. Still complaining of symptoms. Labs and CXR ordered. Xray: no acute cardiopulmonary process Laboratory Tests Test 03/11/17 03/11/17 15:35 15:45 White Blood Count 6.7 TH/MM3 Red Blood Count 4.52 MIL/MM3 Hemoglobin 11.8 GM/DL Hematocrit 37.0 % Mean Corpuscular Volume 81.9 FL Mean Corpuscular Hemoglobin 26.1 PG Mean Corpuscular Hemoglobin 31.8 % Concent Red Cell Distribution Width 16.2 % Platelet Count 165 TH/MM3 Mean Platelet Volume 9.3 FL Neutrophils (%) (Auto) 61.6 % Lymphocytes (%) (Auto) 30.4 % Monocytes (%) (Auto) 6.8 % Eosinophils (%) (Auto) 0.8 % Basophils (%) (Auto) 0.4 % Neutrophils # (Auto) 4.1 TH/MM3 Lymphocytes # (Auto) 2.0 TH/MM3 Monocytes # (Auto) 0.5 TH/MM3 Eosinophils # (Auto) 0.1 TH/MM3 Basophils # (Auto) 0.0 TH/MM3 CBC Comment DIFF FINAL Differential Comment Sodium Level 138 MEQ/L Potassium Level 4.2 MEQ/L Chloride Level 104 MEQ/L Carbon Dioxide Level 26.5 MEQ/L Anion Gap 8 MEQ/L Blood Urea Nitrogen 10 MG/DL Creatinine 0.53 MG/DL Estimat Glomerular Filtration 152 ML/MIN Rate Random Glucose 64 MG/DL Calcium Level 8.7 MG/DL Urine Color YELLOW Urine Turbidity CLEAR Urine pH 7.0 Urine Specific [place] 1.027 Urine Protein NEG mg/dL Urine Glucose (UA) 1000 mg/dL Urine Ketones NEG mg/dL Urine Occult Blood NEG Urine Nitrite NEG Urine Bilirubin NEG Urine Urobilinogen LESS THAN 2.0 MG/DL Urine Leukocyte Esterase NEG Urine RBC LESS THAN 1 /hpf Urine WBC 1 /hpf Urine Squamous Epithelial <1 /hpf Cells Microscopic Urinalysis Comment CULT NOT INDICATED Last Impressions Chest X-Ray 03/11/17 0000 Signed Impressions: Service Date/Time: Saturday, March 11, 2017 15:43 - CONCLUSION: No acute cardiopulmonary disease. Erica Hdz MD Discussed negative findings with patient. Advised her to continue her current pain medications. F/U with PCP. Her cough may be residual from her pneumonia. Her lungs are clear. I do not see any need for further treatment. Diagnosis Primary Impression: Cough Patient Instructions: General Instructions Additional Instructions: Follow up with your primary care doctor as we discussed. Med/Other Pt SpecificInfo: No Change to Meds Disposition: 01 DISCHARGE HOME Condition: Stable Stacy Tucker Mar 11, 2017 14:58
--- NOTE | 2017-03-11 16:38 | RADRPT ---
EXAM DATE/TIME: 03/11/2017 15:43 [facility] COMPARISON: CHEST SINGLE AP, February 21, 2016, 3:12. INDICATIONS : Cough MEDICAL HISTORY : Diabetes mellitus type 2. Gastroesophageal reflux disease. Hypertension. SURGICAL HISTORY : Gastric bypass. Cholecystectomy.Hysterectomy.Tubal ligation. ENCOUNTER: Initial ACUITY: 1 day PAIN SCORE: 0/10 LOCATION: Bilateral chest FINDINGS: The lungs are clear without infiltrate, nodule, or mass. There is no appreciable pleural effusion fo r technique. Heart and mediastinum are unremarkable. CONCLUSION: No acute cardiopulmonary disease. Erica Hdz MD on March 11, 2017 at 16:36 Board Certified Radiologist. This report was verified electronically.
[2017-03-11 16:50] LABS: AUTOMATED NEUTROPHIL # 4.1 TH/MM3 (1.8-7.7); BASOPHIL % 0.4 % (0.0-2.0); EOSINOPHIL # 0.1 TH/MM3 (0-0.4); EOSINOPHIL % 0.8 % (0.0-4.0); HEMO FLAGS DIFF FINAL; LYMPH % 30.4 % (9.0-44.0); MEAN CELL VOLUME 81.9 FL (80.0-100.0); MEAN CORPUSCULAR HEMOGLOBIN 26.1 PG (27.0-34.0); MEAN CORPUSCULAR HGB CONC 31.8 % (32.0-36.0); MONO % 6.8 % (0.0-8.0); NEUT % 61.6 % (16.0-70.0); PLATELET COUNT 165 TH/MM3 (150-450); RED BLOOD COUNT 4.52 MIL/MM3 (4.00-5.30); RED CELL DISTRIBUTION WIDTH 16.2 % (11.6-17.2); WHITE BLOOD COUNT 6.7 TH/MM3 (4.0-11.0)
[2017-03-11 16:51] LABS: BLOOD, URINE NEG (NEG); COMMENT (UR) CULT NOT INDICATED; CULTURE IF INDICATED CULT NOT INDICATED; GLUCOSE,URINE 1000 mg/dL (NEG); KETONE, URINE NEG (NEG); NITRITE,URINE NEG (NEG); SQUAMOUS EPITHELIAL CELL URINE <1 /hpf (0-5); URINE COLOR YELLOW (YELLW/STRAW)
[2017-03-11 17:11] LABS: BICARBONATE 26.5 MEQ/L (21.0-32.0); POTASSIUM 4.2 MEQ/L (3.5-5.1)
== END 2017-03-11 17:37 | disposition home or self-care (01) ==
LOC: NEPD 14:49
DX: R05 Cough (principal); I10 Essential (primary) hypertension
CPT/HCPCS: 71010; 80048; 81001; 85025; 99284

== ENCOUNTER → 2017-05-01 | Outpatient (CLI) | payer OTHER, MEDICAID ==
--- NOTE | 2017-05-01 11:22 | RADRPT ---
EXAM DATE/TIME: 05/01/2017 00:00 COMPARISON: CT CONSULTATION, April 19, 2017, 0:00. INDICATIONS : Request for pelvic cyst aspiration. FINDINGS/ CONCLUSION: Mrs. Corley has a cyst mass in the left adnexal region. I have been asked to address this percutaneou sly. There is no free air or percutaneous access to this cystic mass in the left adnexal region. Thank you for this consultation. Bean Dunn MD FACR on May 01, 2017 at 11:08 Board Certified Radiologist. This report was verified electronically.
== END ==
LOC: HRAD 10:27
PROVIDERS: ATTEND Obstetrics & Gynecology Gynecologic Oncology
DX: N94.89 Other specified conditions associated with female genital organs and menstrual cycle (principal)

== ENCOUNTER 2017-07-04 22:58 | Emergency (ER) | payer OTHER, MEDICAID ==
[~2017-07-04] VITALS: Ht 162.6 cm; Wt 93.0 kg
[~2017-07-04 22:58] MED LIST changes: +TRAZ100T10 PO; -TRAZ100T6 PO
[2017-07-04 23:12] VITALS: BP 115/69; PULSE 78; RESP 20; TEMP 98.3; O2SAT 97
[2017-07-04] MEDS ORDERED: INSU1INJ14 SQ (23:26)
[2017-07-04 23:53] VITALS: RESP 17; O2SAT 97
[2017-07-05 00:07] LABS: BASOPHIL % 0.3 % (0.0-2.0); EOSINOPHIL % 0.5 % (0.0-4.0); HEMATOCRIT 34.8 % (35.0-46.0); HEMO FLAGS DIFF FINAL; LYMPH % 24.3 % (9.0-44.0); LYMPHOCYTE # 1.8 TH/MM3 (1.0-4.8); MEAN CORPUSCULAR HEMOGLOBIN 25.2 PG (27.0-34.0); MEAN CORPUSCULAR HGB CONC 31.9 % (32.0-36.0); MONO % 6.1 % (0.0-8.0); NEUT % 68.8 % (16.0-70.0); PLATELET COUNT 164 TH/MM3 (150-450); RED BLOOD COUNT 4.41 MIL/MM3 (4.00-5.30); WHITE BLOOD COUNT 7.2 TH/MM3 (4.0-11.0)
--- NOTE | 2017-07-05 00:11 | PD ---
HPI Chief Complaint: Headache Time Seen by Provider: 23:12 Travel History International Travel<30 days: No Contact w/Intl Traveler<30days: No Traveled to known affect area: No History of Present Illness HPI The patient is a 46 year old female who presents to the [facility] emergency department with a history of reportedly developing nausea and vomiting with a headache approximately 2 hours prior to arrival. The patient reports that the headache is located over her forehead and bilateral temples. She reports that the headache seems to be coming and going and is throbbing in character. She reports having light sensitivity associated with it. She reports that she does have a history of migraine headaches and is followed by Dr. Candelaria for this. She reports that she's had nausea and vomiting 2 prior to arrival. She reports having a tingling sensation in her left hand with a sensation of decreased movie critic in the left hand. She reports that she has had this in the past. She reports having a history of prior stroke. On further questioning she reports that her stroke with actually a subarachnoid hemorrhage that occurred when she was 21 years of age. She denies having any aneurysm clipping or surgery related to it. On review of systems otherwise, the patient denies having any recent fevers, cough, congestion, neck pain, chest pain, shortness of breath, abdominal pain, diarrhea, urinary symptoms, or other neurologic symptoms. She denies reports that she has been moving her bowels regularly. Her last menstrual cycle was 44 years of age. [facility] Past Medical History Narrative Medical The patient's past medical history is significant for neuropathy, migraine headaches, subarachnoid hemorrhage with reported residual deficits, history of angina, arthritis, coronary artery disease, diabetes mellitus, hypertension, elevated liver enzymes, peripheral neuropathy, uterine fibroids. Arthritis: Yes Asthma: No Atrial Fibrillation: Yes Autoimmune Disease: Yes Blood Disorders: No Anxiety: Yes Depression: Yes Heart Rhythm Problems: Yes (HAS HEART RHYTHM PROBLEMS WHEN TAKING DARVOCET) Cancer: No Cardiovascular Problems: Yes High Cholesterol: Yes Chemotherapy: No Chest Pain: Yes (FOR 1 DAY) Congestive Heart Failure: No COPD: No Coronary Artery Disease: Yes Diabetes: Yes (DM II) Patient Takes Glucophage: No Diminished Hearing: No Endocrine: Yes Fibromyalgia: Yes Gastrointestinal Disorders: Yes GERD: Yes Glaucoma: No Genitourinary: No Headaches: Yes Hepatitis: No Hiatal Hernia: No Hypertension: Yes 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) Kidney Stones: No Medical other: Yes (GERD, NEUROPATHY IN FEET AND HANDS, SUB ARACHNOID HEMORRHAGE) Musculoskeletal: Yes (BACK NECK PAIN) Neurologic: Yes Psychiatric: Yes Reproductive: No Respiratory: Yes (HX SLEEP APNEA (RESOLVED WITH WT LOSS)) Immunizations Current: Yes Migraines: Yes Myocardial Infarction: No Radiation Therapy: No Renal Failure: No Seizures: No Sickle Cell Disease: No Sleep Apnea: No Thyroid Disease: No Ulcer: No Tetanus Vaccination: < 5 Years Influenza Vaccination: Yes ?: Not LMP: tubal ligation but spotting currently x 2 weeks : 2 Para: 2 Miscarriage: 0 : 0 Ovarian Cysts: Yes Dilation and Curettage (D&C): Yes Tubal Ligation: Yes Past Surgical History Narrative Surgical The patient's past surgical history is reportedly significant for ovarian cyst drainage, appendectomy, , carpal tunnel release, cholecystectomy, gastric bypass, trigger finger release, bilateral tubal ligation, hernia repair. Abdominal Surgery: Yes (gastric bypass, hernia repair) AICD: No Cardiac Surgery: No Section: Yes (x 2) Cholecystectomy: Yes Ear Surgery: No Endocrine Surgery: No Eye Surgery: No Genitourinary Surgery: No Gynecologic Surgery: Yes (c sec x 2) Hysterectomy: Yes Joint Replacement: No Neurologic Surgery: No Oral Surgery: Yes (WISDOM TEETH REMOVED) Pacemaker: No Thoracic Surgery: No Other Surgery: Yes (BILAT CARPEL TUNNEL) Social History Alcohol Use: No Tobacco Use: No Substance Use: No Allergies-Medications (Allergen,Severity, Reaction): Coded Allergies: acetaminophen (Unverified Adverse Reaction, Severe, Tachycardia, 03/07/17) propoxyphene (Unverified Adverse Reaction, Severe, Tachycardia, 03/07/17) ciprofloxacin (Unverified Adverse Reaction, Intermediate, 03/07/17) Reported Meds & Prescriptions Reported Meds & Active Scripts Active Calcium Carbonate Extra Strength (Calcium Carbonate (Antacid)) 750 Mg Chew 750 Mg CHEW TID PRN 7 Days Reported Tresiba Flextouch Pen Inj (Insulin Degludec Inj) 300 unit/3 ML Pen 40 Units SQ DAILY Premarin (Estrogens Conjugated) 0.625 Mg Tab 0.625 Mg PO DAILY Trazodone (Trazodone HCl) 100 Mg Tablet 100 Mg PO HS Gabapentin 800 Mg Tab 800 Mg PO BID Vitamin D (Cholecalciferol) 2,000 Unit Cap Tizanidine (Tizanidine HCl) 4 Mg Cap 4 Mg PO Q8HRS Protonix (Pantoprazole Sodium) 40 Mg Tab 40 Mg PO DAILY Lisinopril 20 Mg Tab 20 Mg PO DAILY Novolog Inj (Insulin Aspart) 1,000 Unit/10 Ml Vial 10 Units SQ TID Hydrocodone-Acetaminophen 10-325 mg Tab 1 Tab PO Q6H PRN Jardiance (Empagliflozin) 25 Mg Tab 25 Mg PO DAILY Duloxetine DR (Duloxetine HCl) 60 Mg Capdr 60 Mg PO DAILY Review of Systems Except as stated in HPI: all other systems reviewed are Neg General / Constitutional: No: Fever Eyes: No: Visual changes HENT: Positive: Headaches, No: Congestion, Neck Stiffness, Neck Pain Cardiovascular: No: Chest Pain or Discomfort Respiratory: No: Cough, Shortness of Breath Gastrointestinal: Positive: Nausea, Vomiting, No: Abdominal Pain Genitourinary: No: Dysuria Musculoskeletal: No: Pain Skin: No Rash Neurologic: Positive: Paresthesia, No: Weakness, Change in Mentation, Slurred Speech, Sensory Disturbance Psychiatric: No: Depression Endocrine: No: Polydipsia Hematologic/Lymphatic: No: Easy Bruising Physical Exam Narrative General: The patient is a well-developed well-nourished female in no acute distress. Head and Neck exam: Head is normocephalic atraumatic. Eyes: EOMI, pupils are equal round and reactive to light. Nose: Midline septum with pink mucous membranes Mouth: Dentition unremarkable. Moist mucus membranes. Posterior oropharynx is not erythematous. No tonsillar hypertrophy. Uvula midline. Airway patent. Neck: No palpable lymphadenopathy. No nuchal rigidity. No thyromegaly. Negative Brudzinski, negative Kernig sign. Cardiovascular: Regular rate and rhythm without murmurs, gallops, or rubs. Lungs: Clear to auscultation bilaterally. No wheezes, rhonchi, or rales. Abdomen: Soft, without tenderness to palpation in all 4 quadrants of the abdomen. No guarding, rebound, or rigidity. Normal bowel sounds are audible. No tenderness on palpation of McBurney's point. Extremities: No clubbing, cyanosis, or edema. 2+ pulses in all 4 extremities. No calf tenderness on palpation. Back: No spinous process tenderness to palpation. No costovertebral angle tenderness to palpation. Neurologic Exam: Cranial nerves 2-12 were intact on exam. Strength is 5/5 in all 4 extremities. No sensory deficits noted. Skin Exam: No rash noted. Intact skin that is warm and dry. Data Data Last Documented VS Vital Signs Date Time Temp Pulse Resp B/P (MAP) Pulse Ox O2 Delivery O2 Flow Rate FiO2 07/05/17 01:37 74 16 109/62 (78) 97 Room Air 07/04/17 23:12 98.3 Orders Orders Complete Blood Count With Diff (07/04/17 23:38) Comprehensive Metabolic Panel (07/04/17 23:38) Prothrombin Time / Inr (Pt) (07/04/17 23:38) Act Partial Throm Time (Ptt) (07/04/17 23:38) Lipase (07/04/17 23:38) Urinalysis - C+S If Indicated (07/04/17 23:38) Magnesium (Mg) (07/04/17 23:38) Iv Access Insert/Monitor (07/04/17 23:38) Ecg Monitoring (07/04/17 23:38) Oximetry (07/04/17 23:38) Ed Urine Pregnancytest Poc (07/04/17 23:38) Ct Brain W/O Iv Contrast(Rout) (07/05/17 00:01) Cta Brain W Iv Contrast W 3d (07/05/17 00:01) Sodium Chlor 0.9% 1000 Ml Inj (Ns 1000 M (07/05/17 01:30) Ondansetron Inj (Zofran Inj) (07/05/17 01:30) Calcium Gluconate Inj (Calcium Gluconate (07/05/17 01:30) Cta Neck W Iv Contrast W 3d (07/05/17 ) Iohexol 350 Inj (Omnipaque 350 Inj) (07/05/17 02:45) Xals-Ttufq-Eczz 325-50-40 Mg (Fioricet 3 (07/05/17 04:00) Labs Laboratory Tests Test 07/04/17 23:50 07/05/17 03:15 White Blood Count 7.2 TH/MM3 Red Blood Count 4.41 MIL/MM3 Hemoglobin 11.1 GM/DL Hematocrit 34.8 % Mean Corpuscular Volume 79.0 FL Mean Corpuscular Hemoglobin 25.2 PG Mean Corpuscular Hemoglobin Concent 31.9 % Red Cell Distribution Width 18.0 % Platelet Count 164 TH/MM3 Mean Platelet Volume 8.7 FL Neutrophils (%) (Auto) 68.8 % Lymphocytes (%) (Auto) 24.3 % Monocytes (%) (Auto) 6.1 % Eosinophils (%) (Auto) 0.5 % Basophils (%) (Auto) 0.3 % Neutrophils # (Auto) 5.0 TH/MM3 Lymphocytes # (Auto) 1.8 TH/MM3 Monocytes # (Auto) 0.4 TH/MM3 Eosinophils # (Auto) 0.0 TH/MM3 Basophils # (Auto) 0.0 TH/MM3 CBC Comment DIFF FINAL Differential Comment Prothrombin Time 9.6 SEC Prothromb Time International Ratio 0.9 RATIO Activated Partial Thromboplast Time 21.3 SEC Blood Urea Nitrogen 13 MG/DL Creatinine 0.66 MG/DL Random Glucose 107 MG/DL Total Protein 6.8 GM/DL Albumin 3.0 GM/DL Calcium Level 7.4 MG/DL Magnesium Level 1.8 MG/DL Alkaline Phosphatase 77 U/L Aspartate Amino Transf (AST/SGOT) 76 U/L Alanine Aminotransferase (ALT/SGPT) 59 U/L Total Bilirubin 0.1 MG/DL Sodium Level 142 MEQ/L Potassium Level 4.1 MEQ/L Chloride Level 113 MEQ/L Carbon Dioxide Level 22.7 MEQ/L Anion Gap 6 MEQ/L Estimat Glomerular Filtration Rate 118 ML/MIN Protein Corrected Calcium 7.6 MG/DL Lipase 108 U/L Urine Color LIGHT-YELLOW Urine Turbidity CLEAR Urine pH 5.5 Urine Specific [place] 1.050 Urine Protein NEG mg/dL Urine Glucose (UA) 1000 mg/dL Urine Ketones NEG mg/dL Urine Occult Blood MOD Urine Nitrite NEG Urine Bilirubin NEG Urine Urobilinogen LESS THAN 2.0 MG/DL Urine Leukocyte Esterase NEG Urine RBC 1 /hpf Urine WBC 1 /hpf Microscopic Urinalysis Comment CULT NOT INDICATED MDM Medical Decision Making Medical Screen Exam Complete: Yes Emergency Medical Condition: Yes Medical Record Reviewed: Yes Interpretation(s) Last Impressions Head CTA 07/05/17 0001 Signed Impressions: Service Date/Time: Wednesday, July 05, 2017 01:55 - CONCLUSION: Negative CTA of the intracranial circulation. Jhon Seymour MD Head CT 07/05/17 0001 Signed Impressions: Service Date/Time: Wednesday, July 05, 2017 01:59 - CONCLUSION: Negative noncontrast CT brain. Jhon Seymour MD Neck CTA 07/05/17 0000 Signed Impressions: Service Date/Time: Wednesday, July 05, 2017 01:55 - CONCLUSION: Normal CT of the carotids. Jhon Seymour MD Differential Diagnosis Subarachnoid hemorrhage, versus tension headache, versus migraine headache, versus viral syndrome, versus neuropathy Narrative Course During the course of the patients emergency department visit, the patients history, examination, and differential diagnosis were reviewed with the patient. The patient was placed on a court recording monitor with oximetry and frequent blood pressure monitoring. The patient had IV access obtained and blood work sent for analysis. The patient was initially provided normal saline a 1 L IV fluid bolus, Zofran 4 mg IV, Fioricet 1 by mouth [address] scan of the brain showed no evidence of hemorrhage. The patients laboratory studies were reviewed and remarkable for a white count of 7.2, hemoglobin 11.1, platelets 164 with a normal differential, CMP is remarkable for chloride of 113, glucose 107, protein corrected calcium 7.6, total bilirubin 0.1, AST 76, ALT 59, albumin 3.0, lipase 108, PT 9.6, PTT 21.3. Urinalysis shows 1000 glucose, moderate occult blood, 1 rbc. Culture not indicated. Radiology studies were reviewed and remarkable for a CT scan of the brain shows no acute abnormality. CTA of the brain shows no acute abdomen on a. CTA of the neck shows no acute abnormality. Given the patient's hypocalcemia the patient was given calcium gluconate 1 g IV over one hour. The patient will be discharged home with a calcium supplement. The patient reported feeling improved regarding her headache. She is instructed to follow-up with her primary care physician and her neurologist. She reports that she has an appointment scheduled with next week. The patient is resting comfortably and feels better, is alert and in no distress. The patients results and examination findings were discussed with the patient. The repeat examination is unremarkable and benign. The history, exam, diagnostic testing, and current condition do not suggest any significant pathology to warrant further testing, continued ED treatment, admission, or surgical evaluation at this point. The vital signs have been stable. The patient does not have uncontrollable pain, intractable vomiting, or other significant symptoms. The patient's condition is stable and appropriate for discharge. The patient will pursue further outpatient evaluation with a primary care physician or other designated or consulting physician as indicated in the discharge instructions. The patient expressed understanding and was agreeable with this plan. Diagnosis Primary Impression: Headache Qualified Codes: R51 - Headache Additional Impression: Hypocalcemia Referrals: Mickey Candelaria MD 1 week Primary Care Physician 2 days Patient Instructions: Acute Headache (ED), General Instructions, Hypocalcemia ( ED) Med/Other Pt SpecificInfo: Prescription(s) given Scripts Calcium Carbonate (Antacid) (Calcium Carbonate Extra Strength) 750 Mg Chew 750 MG CHEW TID Y for HEARTBURN for 7 Days, TAB 0 Refills Prov: Natali Parekh MD 07/05/17 Disposition: 01 DISCHARGE HOME Condition: Stable Natali Parekh MD Jul 05, 2017 00:11
[2017-07-05 00:17] LABS: APTT (PATIENT) 21.3 SEC (24.3-30.1); INTERNATIONAL NORMALIZED RATIO 0.9 RATIO; PROTHROMBIN TIME - PATIENT 9.6 SEC (9.8-11.6)
[2017-07-05 00:46] LABS: BICARBONATE 22.7 MEQ/L (21.0-32.0); CALCIUM-PROTEIN CORRECTED 7.6 MG/DL (8.5-10.1); MAGNESIUM 1.8 MG/DL (1.5-2.5); POTASSIUM 4.1 MEQ/L (3.5-5.1); TOTAL BILIRUBIN ADULT 0.1 MG/DL (0.2-1.0)
[2017-07-05] MEDS ORDERED: SODIUM CHLOR 0.9% 1000 ML INJ 1,000 ML IV ONE (01:30)
[2017-07-05] MEDS ORDERED: ONDANSETRON HCL 4 MG/2 ML VIAL IV PUSH ONE (01:30)
[2017-07-05] MEDS ORDERED: CALCIUM GLUCONATE INJ 1 GM in DEXTROSE 5% IN WATER 100ML INJ 100 ML IV ONE ×2 (01:30)
[2017-07-05 01:37] VITALS: BP 109/62; PULSE 74; RESP 16; O2SAT 97
[2017-07-05] MEDS ORDERED: IOHEXOL 350 MG/ML 10 ML VIAL (for RAD DIAG) IVCONTRAST ONE (02:45)
--- NOTE | 2017-07-05 02:46 | RADRPT ---
EXAM DATE/TIME: 07/05/2017 01:59 [facility] COMPARISON: CT BRAIN W/O CONTRAST, February 21, 2016, 3:35. INDICATIONS : Cephalgia. RADIATION DOSE: 56.35 CTDIvol (mGy) MEDICAL HISTORY : Hypertension. SURGICAL HISTORY : None. ENCOUNTER: Initial ACUITY: 1 day PAIN SCALE: 5/10 LOCATION: Bilateral cranial TECHNIQUE: Multiple contiguous axial images were obtained of the head. Using automated exposure control and adj ustment of the mA and/or kV according to patient size, radiation dose was kept as low as reasonably a chievable to obtain optimal diagnostic quality images. DICOM format image data is available electro nically for review and comparison. FINDINGS: CEREBRUM: The ventricles are normal for age. No evidence of midline shift, mass lesion, hemorrhage or acute in farction. No extra-axial fluid collections are seen. POSTERIOR FOSSA: The cerebellum and brainstem are intact. The 4th ventricle is midline. The cerebellopontine angle i s unremarkable. EXTRACRANIAL: The visualized portion of the orbits is intact. SKULL: The calvaria is intact. No evidence of skull fracture. CONCLUSION: Negative noncontrast CT brain. Jhon Seymour MD on July 05, 2017 at 2:43 Board Certified Radiologist. This report was verified electronically.
--- NOTE | 2017-07-05 03:00 | RADRPT ---
EXAM DATE/TIME: 07/05/2017 01:55 [facility] COMPARISON: CT BRAIN W/O CONTRAST, July 05, 2017, 1:59. INDICATIONS : Cephalgia. IV CONTRAST: 89 cc Omnipaque 350 (iohexol) IV ; Cumulative dose for multiple exams. RADIATION DOSE: 16.88 CTDIvol (mGy) ; Combined studies MEDICAL HISTORY : Hypertension. SURGICAL HISTORY : Hysterectomy. ENCOUNTER: Initial ACUITY: 1 day PAIN SCALE: 5/10 LOCATION: cranial TECHNIQUE: Volumetric scanning was performed using a multi-row detector CT scanner. The data was post processed with a variety of visualization algorithms including full volume maximum intensity projection, multi -planar sliding thin slab reformation, curved planar reformation, and surface rendering techniques. Using automated exposure control and adjustment of the mA and/or kV according to patient size, radiat ion dose was kept as low as reasonably achievable to obtain optimal diagnostic quality images. DICO M format image data is available electronically for review and comparison. FINDINGS: There is excellent visualization of the major intracranial arteries out to the second-order branch ve ssels. There is no evidence for aneurysm, vessel truncation or stenosis, and no evidence for vascula r malformation. CONCLUSION: Negative CTA of the intracranial circulation. John Seymour MD on July 05, 2017 at 2:57 Board Certified Radiologist. This report was verified electronically.
--- NOTE | 2017-07-05 03:09 | RADRPT ---
EXAM DATE/TIME: 07/05/2017 01:55 [facility] COMPARISON: No previous studies available for comparison. INDICATIONS : Cephalgia. IV CONTRAST: 89 cc Omnipaque 350 (iohexol) IV ; Cumulative dose for multiple exams. RADIATION DOSE: 16.88 CTDIvol (mGy) ; Combined studies MEDICAL HISTORY : Hypertension. SURGICAL HISTORY : Hysterectomy. ENCOUNTER: Initial ACUITY: 1 day PAIN SCALE: 5/10 LOCATION: cranial Elevated flow velocities and ICA/CCA ratios have been found to correlate with increased degrees of vessel stenosis, calculated as percentage of diameter relative to a normal segment of distal ICA/CCA. TECHNIQUE: Volumetric scanning was performed using a multirow detector CT scanner. The data was post processed with a variety of visualization algorithms including full-volume maximum intensity projection, multip lanar sliding thin-slab reformation, curved-planar reformation, and surface-rendering techniques. Us ing automated exposure control and adjustment of the mA and/or kV according to patient size, radiatio n dose was kept as low as reasonably achievable to obtain optimal diagnostic quality images. DICOM f ormat image data is available electronically for review and comparison. FINDINGS: AORTIC ARCH: There is a three-vessel origin of the great vessels from the aorta. No evidence of ostial narrowing. RIGHT CAROTID: The common carotid artery is intact. The carotid bulb has a normal configuration without ulceration o r narrowing. The internal carotid artery lumen is smooth without stenosis. The external carotid gulshan ry is intact. LEFT CAROTID: The common carotid artery is intact. The carotid bulb has a normal configuration without ulceration or narrowing. The internal carotid artery lumen is smooth without stenosis. The external carotid ar lory is intact. VERTEBRALS: The vertebral arteries are left dominant. No stenotic lesions are seen. CONCLUSION: Normal CT of the carotids. Jhon Seymour MD on July 05, 2017 at 3:06 Board Certified Radiologist. This report was verified electronically.
[2017-07-05] MEDS ORDERED: CALC1CHW27 CHEW (03:24)
[2017-07-05 03:37] LABS: BLOOD, URINE MOD (NEG); GLUCOSE,URINE 1000 mg/dL (NEG); KETONE, URINE NEG (NEG); NITRITE,URINE NEG (NEG); PH, URINE 5.5 (5.0-8.5); URINE COLOR LIGHT-YELLOW (YELLW/STRAW)
[2017-07-05 03:40] LABS: COMMENT (UR) CULT NOT INDICATED; CULTURE IF INDICATED CULT NOT INDICATED
[2017-07-05] MEDS ORDERED: ACETAMIN 325 MG/BUTALBITAL 50 MG/CAFFEINE 40 MG TAB PO ONE (04:00)
[2017-07-05 05:26] VITALS: BP 114/64; PULSE 78; RESP 18; O2SAT 97
== END 2017-07-05 05:33 | disposition home or self-care (01) ==
LOC: NEPC 22:58
DX: R51 Headache (principal); E83.51 Hypocalcemia; R11.2 Nausea with vomiting, unspecified; R20.2 Paresthesia of skin; I48.91 Unspecified atrial fibrillation; I10 Essential (primary) hypertension; M79.7 Fibromyalgia; E11.40 Type 2 diabetes mellitus with diabetic neuropathy, unspecified; K21.9 Gastro-esophageal reflux disease without esophagitis
CPT/HCPCS: 70450; 70496; 70498; 80053; 81001; 83690; 83735; 84703; 85025; 85610; 85730; 96374; 96375; 99285; J0610; J2405; J7030; Q9967